=== PATIENT | male | born 1990 | race American Indian/Alaskan Native ===

== ENCOUNTER 2019-07-19 16:24 | Emergency (ER) | payer MEDICAID ==
[2019-07-19 16:47] VITALS: BP 130/90
--- NOTE | 2019-07-19 16:52 | Emergency Department Report ---
Chief Complaint: Recheck/Abnormal Lab/Rx Stated Complaint: MEDICATION REFILL Time Seen by Provider: 07/19/19 16:46 - HPI History of Present Illness: pt is a 29 yo male who presents for refill of medications. pt states he still has some tablets left. no SI/no HI/no hallucinations. pt is asymptomatic. he is on seroquel, klonopin, and duloexetine. - Exam Vital Signs: Vital Signs 07/19/19 16:46 Temperature 97.7 F Pulse Rate 83 Respiratory 16 Rate Blood Pressure 130/90 [Left] O2 Sat by Pulse 94 Oximetry MSE screening note: Focused history performed. ED Medical Decision Making - Medical Decision Making pt is A&O x 3. denies any SI/HI/Hallucinations. discussed with pt that his psychiatric medications would need to be refilled by a psychiatrist or primary care doctor. discussed with pt that these medications needed to be monitored and he needed to have regular check ups. pt given [facility] and several lists of community resources. discussed with pt to return immediately or call 911 if began to have feelings of SI/HI/or hallucinations. ED Disposition for MSE Clinical Impression: Medication refill Disposition: MED SCREENING EXAM-LEFT Is pt being admited?: No Does the pt Need Aspirin: No Condition: Stable Referrals: [facility] [Outside] - 2-3 Days [facility] [Outside] - 2-3 Days [facility] [Provider Group] - 2-3 Days [facility] [Outside] - 2-3 Days Forms: Accompanied Note, Work/School Release Form(ED) Time of Disposition: 16:47 Print Language: YORUBA
== END 2019-07-19 16:50 | disposition left against medical advice (07) ==
LOC: ED 16:24
DX: F31.9 Bipolar disorder, unspecified (principal); Z76.0 Encounter for issue of repeat prescription
CPT/HCPCS: 99282